=== PATIENT | female | born 1975 | race Caucasian/White ===

== ENCOUNTER 2022-05-30 10:15 | Emergency (ER) | payer OTHER, SELFPAY ==
[2022-05-30 10:20] VITALS: BP 161/101; PULSE 74; RESP 18; TEMP 36.1; O2SAT 95; BMI 28.7
--- NOTE | 2022-05-30 11:14 | CRLHL7_ITS ---
For Patients: As a result of the Century Cures Act, medical imaging exams and procedure reports are released immediately into your electronic medical record. You may view this report before your referring provider. If you have questions, please contact your health care provider. INDICATION: RUQ/rib pain COMPARISON: Ultrasound 01/18/2015. CT 01/20/2015. TECHNIQUE: Real time chavira scale imaging and color Doppler analysis was performed of the right upper quadrant. FINDINGS: The patient`s liver is of normal size and has uniform echogenicity. There is a normal appearance of the hepatic IVC and proximal abdominal aorta. There is no evidence of ascites. The gallbladder is of normal size and there is evidence of dirty distal acoustic shadowing associated with the fundal gallbladder wall. No large gallstones although tiny stones may be present. The gallbladder wall measures 3 mm in thickness. The common bile duct is of normal size and measures 5 mm in diameter at the level of the hali hepatis. The pancreas appears normal. There is no evidence of a stone or hydronephrosis within the right kidney. Extrarenal pelvis regarding the right kidney is similar to the prior CT. The right kidney measures 12.2 cm in length. IMPRESSION: Mild thickening of the gallbladder wall and dirty acoustic shadowing associated with the fundal wall suggesting adenomyomatosis. No biliary obstruction. A few tiny cholesterol stones may be present within the gallbladder lumen. Dictated by Fernando Daniels MD @ 05/30/2022 12:17:25 PM (Electronically Signed)
[2022-05-30] MEDS: KETOROLAC 30 MG/ML inj IVP (11:29)
[2022-05-30] MEDS: 0.9 % SODIUM CHLORIDE 1000 ml 1,000 ML IV (11:29)
[2022-05-30] MEDS: ONDANSETRON 2 MG/ML inj 4 MG IVP (11:29)
[2022-05-30 11:30] VITALS: BP 144/97; PULSE 97; RESP 18; O2SAT 95
[2022-05-30 12:00] VITALS: BP 150/99; PULSE 97; RESP 18; O2SAT 95
[2022-05-30 12:09] LABS: Basophils Absolute Auto 0.05 K/uL (0.00-0.30); Basophils Percent Auto 0.7 % (0.0-3.0); Eosinophils Percent Auto 12.5 % (0.0-7.0); Hematocrit 41.9 % (33.0-51.0); Hemoglobin* 13.9 gm/dL (12.0-16.0); Immature Granulocytes Abs Auto 0.01 K/uL (0.00-0.30); Lymphocytes Absolute Auto 1.99 K/uL (0.90-2.90); Lymphocytes Percent Auto 28.5 % (20-44); Mean Corpuscular HGB Conc 33 gm/dL (32-36); Mean Corpuscular Hemoglobin 31 pg (26-34); Mean Corpuscular Volume 94 fL (80-100); Monocytes Percent Auto 9.3 % (0.0-11.0); Neutrophils Absolute Auto 3.41 K/uL (1.7-7.0); Neutrophils Percent Auto 48.9 % (42.0-72.0); Platelet Count* 272 K/uL (140-440); RDW Coefficient of Variation % 11.9 % (11.5-15.5); Red Blood Count 4.45 m/uL (4.00-5.20); White Blood Count* 6.98 K/uL (4.50-11.00)
[2022-05-30 12:15] LABS: Slide Review Reflex No
[2022-05-30 12:18] LABS: Chloride* 106 mmol/L (96-114); Sodium* 138 mmol/L (135-149)
[2022-05-30 12:21] LABS: Creatinine* 0.7 mg/dL (0.5-1.5); Est. Creatinine Clearance* 108.59; Estimated Glomerular Filt Rate 108 ml/min
[2022-05-30 12:22] LABS: Blood Urea Nitrogen* 9 mg/dL (5-24); Calcium* 8.9 mg/dL (8.4-10.6); Carbon Dioxide* 27 mmol/L (20-32); Glucose* 98 mg/dL (60-115)
[2022-05-30 12:30] VITALS: BP 154/98; PULSE 97; RESP 18; TEMP 36.1; O2SAT 95
[2022-05-30 12:31] LABS: C Reactive Protein* < 0.5 mg/dL (0.5-1.0)
[2022-05-30 13:10] LABS: Albumin* 3.9 g/dL (3.3-5.0)
[2022-05-30 13:13] LABS: Alanine Aminotransferase* 14 U/L (4-35); Alkaline Phosphatase* 80 U/L (40-150); Aspartate Amino Transferase* 19 U/L (12-35); Bilirubin Direct* 0.1 mg/dL (0.0-0.5); Bilirubin Total* 0.2 mg/dL (0.1-1.5); Lipase* 31 U/L (23-300); Total Protein* 6.6 g/dL (6.0-8.3)
[2022-05-30 13:28] LABS: Troponin I* < 0.01 ng/mL (0.01-0.04)
--- NOTE | 2022-05-30 13:33 | CRLHL7_ITS ---
For Patients: As a result of the Century Cures Act, medical imaging exams and procedure reports are released immediately into your electronic medical record. You may view this report before your referring provider. If you have questions, please contact your health care provider. INDICATION: Upper abdominal pain. TECHNIQUE: CT abdomen and pelvis acquired with 98 mL Isovue 370 IV contrast. Coronal and sagittal reformats were generated. COMPARISON: CT of the abdomen and pelvis from 01/20/2015. FINDINGS: Lower chest: Unremarkable. Liver: Subcapsular hypodensity in segment 6 has increased in size from prior, but is well-circumscribed low-density and probably a cyst. No concerning hepatic lesions. Gallbladder and bile ducts: Thickening of the gallbladder fundus could be an adherent stone or adenomyomatosis. No wall thickening or pericholecystic fluid. Spleen: Unremarkable. Pancreas: Unremarkable. Adrenal glands: Unremarkable. No nodules. Kidneys and Ureters: Unremarkable. No suspicious masses, stones, or hydronephrosis. Lymph Nodes and Retroperitoneum: Unremarkable. Vasculature: Unremarkable. GI tract: Unremarkable. Normal in caliber. Surgically absent appendix. Peritoneum/Abdominal Wall: Unremarkable. No mass or infiltration. No free air or free fluid. Pelvic Viscera: Surgically absent. Bladder: Unremarkable. Bones: Unremarkable for age. IMPRESSION: No significant CT abnormality or findings to explain the cause of the patient`s symptoms. Please note that all CT scans at this facility use dose modulation, iterative reconstruction, and/or weight-based dosing when appropriate to reduce radiation dose to as low as reasonably achievable. Dictated by Viktor Cordova MD @ 05/30/2022 2:32:37 PM (Electronically Signed)
--- NOTE | 2022-05-30 13:59 | ED_ITS ---
HPI - Abdominal Pain General Date Seen: 05/30/22 Chief Complaint: Rib Pain Stated Complaint: pain in right ribs Time Seen by Provider: 05/30/22 10:23 Source: patient Mode of arrival: ambulatory Limitations: no limitations History of Present Illness HPI narrative: Patient is a very nice 47-year-old female who presents here with right-sided rib pain. She notes that she has had this on off for months, specific episodes that radiate up into her chest and also into her back region. She is unable to associated with eating or food her exercise removing. She has tried Tylenol ibuprofen with really no improvement. There is no history of fevers chills she does have a little nausea with this but has not vomited recently. Denies any shortness of breath or activities, it is more of a sharp pain then boring type of pain. Describes it as approximately 7 to 8/10. MD elicited complaint: abdominal pain Pertinent past history: none Onset (ago): week(s) Pain Consistency: intermittent Location: epigastric and RUQ Severity: moderate Quality: cramping and sharp Radiation: chest Migration to: no migration Exacerbating factors: nothing Relieving factors: nothing Associated symptoms: denies other symptoms and nausea Treatments prior to arrival: NSAIDs Related Data Patient : No Home Medications Medication Instructions Recorded Confirmed levothyroxine 100 mcg tablet 100 mcg PO DAILY 05/30/22 05/30/22 Allergies Allergy/AdvReac Type Severity Reaction Status Date / Time Sulfa (Sulfonamide Allergy Severe Verified 05/30/22 14:22 Antibiotics) Review of Systems Status of ROS Reports: 10 or more systems reviewed and unremarkable except as noted in History and below PFSH PFSH Social History Smoking Status: Never smoker Do you use any of these nicotine containing products: None Second hand tobacco smoke exposure: No How often do you have a drink containing alcohol: never How often do you have six or more drinks on one occasion: Never AUDIT-C Alcohol total score: 0 Non-prescribed substance use: denies use service: No Exam Narrative: Exam Narrative: Patient is seen and assessed, she is nontoxic but teary when she is telling me her story. Her pupils are equal round reactive to light there is no scleral icterus or redness TMs are normal oropharynx normal there is no adenopathy anterior posterior chains. Chest is good air entry bilateral with no wheezing crackles noted heart sounds no clicks murmurs or gallops, her pain is actually in her epigastric right upper quadrant she has tells me it is her ribs but really it is not it is in her abdomen. Her chest is nontender and where she is describing the pain is pretty well over right upper quadrant. Bowel sounds are normal, she is tender to pop palpation and she has a positive Sheikh sign. Lower quadrants are normal no organomegaly no CVA tenderness she moves all extremities independently and well. Skin reveals no petechiae or rashes Const: Vital Signs, click to edit/add: Vital Signs - 24 hr 05/30/22 10:20 Temperature 97.0 F L Pulse Rate [Left P ulse Oximeter] 74 Respiratory Rate 18 Blood Pressure [Le ft Upper Arm] 161/101 H Pulse Oximetry 95 Oxygen Delivery Me thod Room Air Documenting provider has reviewed patient's vital signs: yes Course Reevaluation(s) Reevaluation #1: Pain is slightly improved with both Toradol, and the morphine. I went over with the patient the results of her test, she was which showed normal hemoglobin, normal white count, normal basic metabolic profile, normal lipase, and normal liver test. Her ultrasound did show some shadowing consistent with small stones, slightly thickened gallbladder wall. No fluid. CT did not show any acute abnormalities which is very reassuring. I think her pain is coming from either eye GI, or gallbladder source, and recommend follow-up with General surgery for a discussion along with possible endoscopy and/or surgery. She was comfortable this she will follow the low-fat diet, start some Prilosec, use some Tylenol for discomfort and avoid something such as caffeinated beverages and alcohol. Vital Signs Vital signs: Initial Vital Signs Temperature 97.0 F L 05/30/22 10:20 Temperature Source Temporal Artery Scan 05/30/22 10:20 Pulse Rate 74 05/30/22 10:20 Pulse Rhythm 05/30/22 10:20 Pulse Strength 3+ Normal 05/30/22 10:20 Respiratory Rate 18 05/30/22 10:20 Blood Pressure 161/101 H 05/30/22 10:20 Blood Pressure Mean 121 05/30/22 10:20 Blood Pressure Position Supine 05/30/22 10:20 Pulse Oximetry 95 05/30/22 10:20 Oxygen Delivery Method 05/30/22 10:20 Vital Signs Temperature 97.0 F L 05/30/22 10:20 Pulse Rate 74 05/30/22 10:20 Respiratory Rate 18 05/30/22 10:20 Blood Pressure 161/101 H 05/30/22 10:20 Pulse Oximetry 95 05/30/22 10:20 Oxygen Delivery Method 05/30/22 10:20 Temperature 97.0 F L 05/30/22 10:20 Pulse Rate 74 05/30/22 10:20 Respiratory Rate 18 05/30/22 10:20 Blood Pressure 161/101 H 05/30/22 10:20 Pulse Oximetry 95 05/30/22 10:20 Oxygen Delivery Method 05/30/22 10:20 MDM - Abdominal Pain MDM Narrative Medical decision making narrative: During the evaluation of this patient I considered multiple differential diagnosis including life-threatening differentials which are appendicitis, aortic aneurysm, mesenteric ischemia, bowel perforation, ectopic , volvulus and bowel obstruction, other differential diagnosis include but are not limited to inflammatory bowel disease, cholecystitis, pancreatitis, hepatitis, gastritis, GERD, diverticulitis, peptic ulcer disease, pyelonephritis/UTI, renal colic/stone, pelvic inflammatory disease, cervicitis, endometritis, intrauterine , dysfunctional uterine bleeding, ovarian cyst/torsion, spontaneous as well as other etiologies Medical Records Attestation: I reviewed the patient's medical records. Lab Data Attestation: I reviewed the patient's lab results. Labs: Lab Results 05/30/22 05/30/22 05/30/22 Range/Units 01:35 11:33 11:33 WBC 6.98 (4.50-11.00) K/uL RBC 4.45 (4.00-5.20) m/uL Hgb 13.9 (12.0-16.0) gm/dL Hct 41.9 (33.0-51.0) % MCV 94 (80-100) fL MCH 31 (26-34) pg MCHC 33 (32-36) gm/dL RDW Coeff of Sanjay 11.9 (11.5-15.5) % Plt Count 272 (140-440) K/uL Neut % (Auto) 48.9 (42.0-72.0) % Lymph % (Auto) 28.5 (20-44) % Buchanan % (Auto) 9.3 (0.0-11.0) % Eos % (Auto) 12.5 H (0.0-7.0) % Baso % (Auto) 0.7 (0.0-3.0) % Neut # (Auto) 3.41 (1.7-7.0) K/uL Lymph # (Auto) 1.99 (0.90-2.90) K/uL Buchanan # (Auto) 0.60 (0.00-0.90) K/UL Eos # (Auto) 0.90 H (0.00-0.50) K/uL Baso # (Auto) 0.05 (0.00-0.30) K/uL Abs Immat Gran (auto) 0.01 (0.00-0.30) K/uL Sodium 138 (135-149) mmol/L Potassium 4.0 (3.6-5.1) mmol/L Chloride 106 (96-114) mmol/L Carbon Dioxide 27 (20-32) mmol/L BUN 9 (5-24) mg/dL Creatinine 0.7 (0.5-1.5) mg/dL Estimated Creat Clear 108.59 Estimated GFR 108 ml/min Glucose 98 (60-115) mg/dL Calcium 8.9 (8.4-10.6) mg/dL Total Bilirubin 0.2 (0.1-1.5) mg/dL Direct Bilirubin 0.1 (0.0-0.5) mg/dL AST 19 (12-35) U/L ALT 14 (4-35) U/L Alkaline Phosphatase 80 (40-150) U/L Troponin I < 0.01 L (0.01-0.04) ng/mL C-Reactive Protein < 0.5 L (0.5-1.0) mg/dL Total Protein 6.6 (6.0-8.3) g/dL Albumin 3.9 (3.3-5.0) g/dL Lipase 31 (23-300) U/L Imaging Data CT scan - abdomen: My impression: Nothing acute Radiologist's impression: Patient: MARIELOS SIDDIQI Facility:?[facility] Patient ID:?[id number] Site Patient ID:?[id number]. Site :?[id number] Study:?CT Abdomen/Pelvis W/ISOVUE 370 98CC-05/30/2022 2:09:48 PM Ordering Physician:Maria Ines Murrell Final Report: INDICATION: Upper abdominal pain. TECHNIQUE: CT abdomen and pelvis acquired with 98 mL Isovue 370 IV contrast. Coronal and sagittal reformats were generated. COMPARISON: CT of the abdomen and pelvis from 01/20/2015. FINDINGS: Lower chest: Unremarkable. Liver: Subcapsular hypodensity in segment 6 has increased in size from prior, but is well-circumscribed low-density and probably a cyst. No concerning hepatic lesions. Gallbladder and bile ducts: Thickening of the gallbladder fundus could be an adherent stone or adenomyomatosis. No wall thickening or pericholecystic fluid. Spleen: Unremarkable. Pancreas: Unremarkable. Adrenal glands: Unremarkable. No nodules. Kidneys and Ureters: Unremarkable. No suspicious masses, stones, or hydronephrosis. Lymph Nodes and Retroperitoneum: Unremarkable. Vasculature: Unremarkable. GI tract: Unremarkable. Normal in caliber. Surgically absent appendix. Peritoneum/Abdominal Wall: Unremarkable. No mass or infiltration. No free air or free fluid. Pelvic Viscera: Surgically absent. Bladder: Unremarkable. Bones: Unremarkable for age. IMPRESSION: No significant CT abnormality or findings to explain the cause of the patient`s symptoms. Please note that all CT scans at this facility use dose modulation, iterative reconstruction, and/or weight-based dosing when appropriate to reduce radiation dose to as low as reasonably achievable. Dictated by Viktor Cordova MD @ 05/30/2022 2:32:37 PM (Electronic Signature) Patient: MARIELOS SIDDIQI Facility:?[facility] Patient ID:?[id number] Site Patient ID:?[id number]. Site :?[id number] Study:?US Abdomen RUQ-05/30/2022 12:06:10 PM Ordering Physician:Maria Ines Murrell Final Report: INDICATION: RUQ/rib pain COMPARISON: Ultrasound 01/18/2015. CT 01/20/2015. TECHNIQUE: Real time chavira scale imaging and color Doppler analysis was performed of the right upper quadrant. FINDINGS: The patient`s liver is of normal size and has uniform echogenicity. There is a normal appearance of the hepatic IVC and proximal abdominal aorta. There is no evidence of ascites. The gallbladder is of normal size and there is evidence of dirty distal acoustic shadowing associated with the fundal gallbladder wall. No large gallstones although tiny stones may be present. The gallbladder wall measures 3 mm in thickness. The common bile duct is of normal size and measures 5 mm in diameter at the level of the hali hepatis. The pancreas appears normal. There is no evidence of a stone or hydronephrosis within the right kidney. Extrarenal pelvis regarding the right kidney is similar to the prior CT. The right kidney measures 12.2 cm in length. IMPRESSION: Mild thickening of the gallbladder wall and dirty acoustic shadowing associated with the fundal wall suggesting adenomyomatosis. No biliary obstruction. A few tiny cholesterol stones may be present within the gallbladder lumen. Dictated by Fernando Daniels MD @ 05/30/2022 12:17:25 PM (Electronic Signature) Discharge Plan Discharge Clinical Impression: Colicky epigastric pain Patient Disposition: Home w/ Parent or Adult Condition: Stable Instructions: GERD (Gastroesophageal Reflux Disease) (DC), Abdominal Pain (ED), Epigastric Pain (ED) Additional Instructions: Home, rest, low-fat diet, he may use some Tylenol for your discomfort, I would try to avoid the nonsteroidals, would also suggest follow up with General surgery for discussion, possibly an EGD, and possibly consideration of cholecystectomy. Note for work given, would also suggest avoidance of caffeine, alcohol. Start Prilosec 20 mg a day, you can buy this [id number]. Please take it for the next 3 weeks and see if it makes a huge difference. Return here if worsening fevers chills nausea vomiting chest discomfort or blood in her stools Prescriptions: No Action levothyroxine 100 mcg tablet 100 mcg PO DAILY Label Comments: TAKE 1 TABLET BY MOUTH EVERY DAY Follow Up/Referrals: Lisset Carson MD [Staff Physician] - Mario Clements MD [Staff Physician] - Jessica Galvez MD [Staff Physician] - Fernando Colbert MD [Primary Care Provider] - Stand Alone Forms: [facility] Info Instructions
[2022-05-30] MEDS: MORPHINE 2 MG/ML inj IVP (14:26)
[2022-05-30 14:30] VITALS: BP 172/102; PULSE 74; RESP 18; TEMP 36.1; O2SAT 95
== END 2022-05-30 15:13 | disposition home or self-care (01) ==
PROVIDERS: Emergency Provider Family Medicine; PCP Family Medicine
DX: R10.13 Epigastric pain (principal)
CPT/HCPCS: 36415; 74177; 76705; 80048; 80076; 81001; 83690; 84484; 85025; 86140; 87502; 87634; 87635; 96374; 96375; 99284; 99285; J1885; J2270; J2405; J7030; Q9967

== ENCOUNTER 2022-06-06 12:23 | Day surgery (SDC) | payer OTHER, SELFPAY ==
[2022-06-06] VITALS (13 sets, daily range): BP systolic 113–147; BP diastolic 59–90; PULSE 56–85; RESP 12–18; TEMP 36.3–37; O2SAT 93–100; BMI 31.3
[2022-06-06] MEDS: LACTATED RINGERS 1000 ML 1,000 ML 100 ML IV (12:52)
[2022-06-06] MEDS: SODIUM CHLORIDE 0.9 % (FLUSH) 10 ML SYRINGE IVF (12:52)
[2022-06-06] MEDS: BUPIVACAINE 0.25% 30 ML 20 ML INJECTION (14:16)
--- NOTE | 2022-06-06 14:32 | SUR.OPER ---
PATIENT QUESTIONS ANSWERED SATISFACTORILY PREOPERATIVELY.? PATIENT BROUGHT TO OR #2 PER CART.? Patient positioned supine on OR #2 bed.?The perioperative?team supported arms bilaterally on arm boards.? Final approval of positioning by surgeon.?
--- NOTE | 2022-06-06 15:10 | W.ANESCHARGE ---
Anesthesia Charges Start Date/Time Anesthesia Start Date: 06/06/22 Anesthesia Start Time: 13:59 Stop Date/Time Anesthesia Stop Date: 06/06/22 Anesthesia Stop Time: 15:10 Summary Emergency: No
--- NOTE | 2022-06-06 15:12 | P.GSOP_ITS ---
Operative Note Date of procedure: 06/06/22 Type of Procedure: Laparoscopic cholecystectomy Procedure Description: After discussing the risks and benefits of the procedure, the patient signed informed consent.? The operative site was marked and the patient was brought to the operating room and placed on the operating table in supine position.? Care was taken to pad the patient's pressure points.?? The patient was then intubated by anesthesia.?? The operative site was then prepped and draped in the usual sterile fashion.? A time-out was then performed. Entrance to the abdomen was gained via a 5 mm Visiport in the left upper quadrant. The abdomen was insufflated and briefly surveyed for signs of injury. There was none. A 10 mm umbilical port was placed as well as 2 working ports along the right costal margin, all under direct vision. The patient was then p laced in reverse Trendelenburg position with the right side up. The gallbladder fundus was grasped and retracted cephalad. The infundibulum was grasped. The gallbladder was not inflamed but it was somewhat distended and tense. A combination of hook cautery and blunt dissection was used to carefully dissect out the cystic duct and artery until they could clearly be seen entering the gallbladder without any intervening structures. The gallbladder was dissected off the cystic plate to achieve the critical view. There were 2 small branches of the cystic artery which were clipped with 2 clips proximal 1 clip distal before dividing. The cystic duct was just slightly too large for 5 mm clip and therefore I elected to ligate it with Endoloops. The gallbladder was transected at the junction of the gallbladder neck and cystic duct and a PDS and a Vicryl endoloop for each placed around the cystic duct stump. The gallbladder was then taken off of the liver bed and removed from the abdomen using an Endo-Catch bag. The gallbladder bed was surveyed for hemostasis which appeared adequate. A small amount of bile which had spilled was suctioned from the abdomen. The remaining ports were then removed and the abdomen desufflated. The umbilical port fascia was closed with 0 Vicryl. The skin was closed with absorbable subcuticular suture. Sterile dressings were then applied. Instrument, sponge and needle counts were correct at the end the case. ? The patient was then woken and transported to the recovery area in stable condition. ? The patient tolerated the procedure well. Findings: Distended gallbladder. Anesthesia: GETA Surgeon: Jessica Galvez MD Estimated blood loss (mL): 5 Condition: stable Disposition: PACU
--- NOTE | 2022-06-06 15:23 | W.ANESCHARGE ---
Anesthesia Charges Start Date/Time Anesthesia Start Date: 06/06/22 Anesthesia Start Time: 13:59 Stop Date/Time Anesthesia Stop Date: 06/06/22 Anesthesia Stop Time: 15:10 Summary Emergency: No
[2022-06-06] MEDS: METOCLOPRAMIDE HCL 5 MG/ML INJ 10 MG IVP (15:55)
[2022-06-06] MEDS: OXYCODONE 5 MG TABLET PO (16:24)
--- NOTE | 2022-06-06 16:55 | SUR.PHASEII ---
DR BOWLES IN TO SEE PT , UP VOIDED PT DISCHARGED IN STABLE CONDTION.
== END 2022-06-06 17:00 | disposition home or self-care (01) ==
PROVIDERS: PCP Family Medicine; Visit Provider Surgery
PROC: 0FT44ZZ Resection of Gallbladder, Percutaneous Endoscopic Approach (ICD-10-PCS; CPT 47562; principal; 2022-06-06 14:00)
DX: K81.1 Chronic cholecystitis (principal)
CPT/HCPCS: 47562; 00790; 88304; A9270; J0330; J1170; J1885; J2250; J2704; J2710; J2765; J3010; J3490; J7120

== ENCOUNTER 2022-06-19 13:27 | Outpatient (CLI) | payer OTHER, SELFPAY ==
[2022-06-19 14:59] LABS: Albumin* 4.2 g/dL (3.3-5.0)
[2022-06-19 15:02] LABS: Alanine Aminotransferase* 22 U/L (4-35); Alkaline Phosphatase* 80 U/L (40-150); Aspartate Amino Transferase* 23 U/L (12-35); Bilirubin Direct* 0.2 mg/dL (0.0-0.5); Bilirubin Total* 0.2 mg/dL (0.1-1.5)
== END 2022-06-19 13:28 | disposition home or self-care (01) ==
LOC: NFLDREF 13:28
PROVIDERS: PCP Family Medicine; Visit Provider Surgery
DX: R10.11 Right upper quadrant pain (principal)
CPT/HCPCS: 80076

== ENCOUNTER 2022-08-31 14:20 | Outpatient (CLI) | payer BC, SELFPAY ==
[2022-09-02 15:12] LABS: Thyroid Peroxidase (TPO) Ab 458.1 IU/mL (0.0-9.0)
== END 2022-08-31 14:21 | disposition home or self-care (01) ==
PROVIDERS: PCP Family Medicine; Visit Provider Family Medicine
DX: R53.83 Other fatigue (principal); E03.9 Hypothyroidism, unspecified; F32.9 Major depressive disorder, single episode, unspecified; F41.9 Anxiety disorder, unspecified
CPT/HCPCS: 84443; 86376

== ENCOUNTER 2022-11-14 10:37 | Emergency (ER) | payer BC, SELFPAY ==
[2022-11-14 10:57] VITALS: BP 130/93; PULSE 83; RESP 18; TEMP 36.8; O2SAT 97; BMI 30.4
--- NOTE | 2022-11-14 11:14 | CRLHL7_ITS ---
For Patients: As a result of the Century Cures Act, medical imaging exams and procedure reports are released immediately into your electronic medical record. You may view this report before your referring provider. If you have questions, please contact your health care provider. INDICATION: Right upper quadrant abdomen pain. History of cholecystectomy. TECHNIQUE: Ultrasound abdomen limited. Sonographic images of the right upper quadrant were obtained using chavira-scale and color Doppler images. COMPARISON: None. FINDINGS: Liver: Normal in size. Increased echogenicity.. No suspicious masses. No intrahepatic biliary dilatation. Gallbladder: Surgically absent. Multiple clips in the gallbladder fossa mildly limiting evaluation. Possible small fluid within the gallbladder fossa is noted.. Common bile duct: Not visualized Pancreas: Partially obscured by bowel gas. Visualized portions are unremarkable. Right kidney: Normal in size. Normal echotexture and cortex. No suspicious masses, stones, or hydronephrosis. Vasculature: Proximal abdominal aorta and IVC are unremarkable. IMPRESSION: Status post cholecystectomy. Possible trace fluid in the gallbladder fossa. No intrahepatic biliary ductal dilatation identified. Common bile duct is not visualized. Hepatic steatosis. Dictated by Brigida Miles MD @ 11/14/2022 1:03:15 PM (Electronically Signed)
--- NOTE | 2022-11-14 14:54 | ED_ITS ---
HPI - General Adult General Date Seen: 11/14/22 Chief complaint: Abdominal Pain Stated complaint: Abdominal/post-op gallbladder removal pain Time Seen by Provider: 11/14/22 14:28 Source: patient Mode of arrival: ambulatory Limitations: no limitations History of Present Illness HPI narrative: Patient is a 47-year-old woman status post cholecystectomy last May 30 presents for evaluation of right-sided abdominal pain. She says that on Sunday, 2 days ago she developed vomiting and diarrhea. Those symptoms continued until yesterday. Since then, the vomiting and diarrhea have resolved but she has developed pain in the far right lateral abdomen. She saw her doctor yesterday and an outpatient ultrasound was ordered, but she came to the ER today because of ongoing pain. She has been able to start eating again, she says she had some tenderloin and mashed potatoes last night and was able he that down. She has been able to drink fluids okay. Related Data Home Medications Medication Instructions Recorded Confirmed acetaminophen 500 mg tablet 1,000 mg PO Q6H PRN 08/01/22 11/13/22 (Tylenol Extra Strength) Previous Rx's Medication Instructions Recorded levothyroxine 100 mcg tablet 100 mcg PO DAILY #30 tabs 08/18/22 ondansetron HCl 8 mg tablet 8 mg PO Q8-12H PRN nausea and 11/13/22 vomiting 4 days #12 tabs Allergies Allergy/AdvReac Type Severity Reaction Status Date / Time Sulfa (Sulfonamide Allergy Severe Verified 11/13/22 11:10 Antibiotics) [facility] Medical History (Updated 11/14/22 @ 16:02 by Mirela Pinedo MD) Anxiety (06/09/10) Concussion (09/2016) Diarrhea Hypothyroidism Major depressive disorder (06/09/10) Postconcussion syndrome depression (03/25/12) Surgical History (Updated 08/31/22 @ 14:23 by Sepideh Cool DO) History of appendectomy (06/09/10) History of dilation and curettage (06/09/10) History of nasal septoplasty (08/05/21) History of total abdominal hysterectomy (10/06/14) S/P laparoscopic cholecystectomy Status post left breast lumpectomy (06/02/08) Family History (Updated 06/05/22 @ 14:40 by Jessica Galvez MD) Maternal Grandfather Hyperlipidemia High blood pressure Skin cancer Social History (Updated 06/02/22 @ 09:29 by Razia Sibley) Narrative: Does not drink alcohol Does not use illicit drugs Smoker- 1-2 cigarettes per day Smoking Status: Former smoker Do you use any of these nicotine containing products: None Second hand tobacco smoke exposure: No How often do you have a drink containing alcohol: never How often do you have six or more drinks on one occasion: Never AUDIT-C Alcohol total score: 0 Non-prescribed substance use: denies use Caffeine: No Little interest or pleasure in doing things: not at all Feeling down, depressed, or hopeless: not at all service: No Exam Const: Vital Signs, click to edit/add: Vital Signs - 24 hr 11/14/22 10:57 Temperature 98.3 F Pulse Rate [Right Pulse Oximeter] 83 Respiratory Rate 18 Blood Pressure [Ri ght Upper Arm] 130/93 H Pulse Oximetry 97 Oxygen Delivery Me thod Room Air Course Course Hospital Course: Patient was actually in triage for quite a while and so I ordered an ultrasound while she was in triage. This is read by Radiology as follows:: Liver: Normal in size. Increased echogenicity.. No suspicious masses. No intrahepatic biliary dilatation. Gallbladder: Surgically absent. Multiple clips in the gallbladder fossa mildly limiting evaluation. Possible small fluid within the gallbladder fossa is noted.. Common bile duct: Not visualized Pancreas: Partially obscured by bowel gas. Visualized portions are unremarkable. Right kidney: Normal in size. Normal echotexture and cortex. No suspicious masses, stones, or hydronephrosis. Vasculature: Proximal abdominal aorta and IVC are unremarkable. IMPRESSION: Status post cholecystectomy. Possible trace fluid in the gallbladder fossa. No intrahepatic biliary ductal dilatation identified. Common bile duct is not visualized. Hepatic steatosis. I discussed this with her. I do not think there is anything acute going on here. Given that the common bile duct is not visualized, I think we can infer that it is not dilated. We had initially discussed doing labs and fluids. When the nurse went in to start the IV, she said that she did not want an IV or any labs done because labs have been done at her primary doctor's. I went back in to talk with her, and at that time she amended her history little bit. Apparently she has had this right sided pain for quite some time, it actually predated her cholecystectomy, and she is frustrated that is has persisted after her cholecystectomy. She says since the episode of vomiting and diarrhea that pain is worse. She does not know what to do about that pain because she has seen her primary doctor and nobody seems to know what is causing it. She tells me that she did not have labs done yesterday at her primary care clinic, because her doctor had just on them recently and they were normal. However, she says she does not think that labs will be helpful because this pain has been there for so long. I am inclined to agree with her that if the pain has been chronic and persistent that is is unlikely to be due to choledocholithiasis, pancreatitis, hepatitis, diverticulitis, colitis, bowel obstruction, or other acute process. She is status post appendectomy and hysterectomy. She does feel that she is dehydrated and would like to have some IV fluids. That is the plan at this time, is for rehydration. Explained that we probably will not have a good explanation for her chronic right-sided pain, and I would refer back to primary care for further discussion on management of that. Vital Signs Vital signs: Initial Vital Signs Temperature 98.3 F 11/14/22 10:57 Temperature Source Temporal Artery Scan 11/14/22 10:57 Pulse Rate 83 11/14/22 10:57 Respiratory Rate 18 11/14/22 10:57 Blood Pressure 130/93 H 11/14/22 10:57 Blood Pressure Mean 105 11/14/22 10:57 Blood Pressure Position Sitting 11/14/22 10:57 Pulse Oximetry 97 11/14/22 10:57 Oxygen Delivery Method 11/14/22 10:57 Vital Signs Temperature 98.3 F 11/14/22 10:57 Pulse Rate 83 11/14/22 10:57 Respiratory Rate 18 11/14/22 10:57 Blood Pressure 130/93 H 11/14/22 10:57 Pulse Oximetry 97 11/14/22 10:57 Oxygen Delivery Method 11/14/22 10:57 Temperature 98.3 F 11/14/22 10:57 Pulse Rate 83 11/14/22 10:57 Respiratory Rate 18 11/14/22 10:57 Blood Pressure 130/93 H 11/14/22 10:57 Pulse Oximetry 97 11/14/22 10:57 Oxygen Delivery Method 11/14/22 10:57 Discharge Plan Discharge Clinical Impression: Gastroenteritis, Chronic RUQ pain Patient Disposition: Home, Self-Care Condition: Improved Instructions: Chronic Abdominal Pain (ED) Additional Instructions: Continue to work on hydration as needed at home. If you have further vomiting, new symptoms such as fever, severe abdominal pain or other new symptoms, return for re-evaluation. Otherwise, would discuss your ongoing right upper quadrant pain with primary care. Prescriptions: No Action ondansetron HCl 8 mg tablet 8 mg PO Q8-12H PRN (Reason: nausea and vomiting) 4 Days Qty: 12 0RF acetaminophen [Tylenol Extra Strength] 500 mg tablet 1,000 mg PO Q6H PRN levothyroxine 100 mcg tablet 100 mcg PO DAILY Qty: 30 0RF Label Comments: TAKE 1 TABLET BY MOUTH EVERY DAY Follow Up/Referrals: Fernando Colbert MD [Primary Care Provider] - Stand Alone Forms: [employer] Info Instructions
[2022-11-14] MEDS: KETOROLAC 15 MG/ML inj IVP (15:18)
[2022-11-14] MEDS: 0.9 % SODIUM CHLORIDE 1000 ml 1,000 ML IV (15:18)
[2022-11-14] MEDS: ONDANSETRON 2 MG/ML inj 4 MG IVP (15:18)
== END 2022-11-14 16:12 | disposition home or self-care (01) ==
PROVIDERS: Emergency Provider Emergency Medicine; PCP Family Medicine
DX: K52.9 Noninfective gastroenteritis and colitis, unspecified (principal); R10.11 Right upper quadrant pain
CPT/HCPCS: 76705; 80048; 80076; 81001; 83605; 83690; 85025; 86140; 96374; 96375; 99284; J1885; J2405; J7030

== ENCOUNTER 2023-07-16 13:57 | Emergency (ER) | payer BC, SELFPAY ==
[2023-07-16 14:05] VITALS: BP 135/84; PULSE 72; RESP 16; TEMP 37.1; O2SAT 100; BMI 30.7
--- NOTE | 2023-07-16 15:16 | CRLHL7_ITS ---
For Patients: As a result of the Century Cures Act, medical imaging exams and procedure reports are released immediately into your electronic medical record. You may view this report before your referring provider. If you have questions, please contact your health care provider. INDICATION: Abdominal pain. Cramping. TECHNIQUE: CT abdomen and pelvis acquired with 105 mL Isovue 370 IV contrast. COMPARISON: 05/30/2022 FINDINGS: Lower chest: Normal heart size. No pericardial effusion. Lung bases are clear. Liver: Normal size. Subcentimeter low-density lesion is too small to accurately characterize. This is stable and therefore likely benign. Spleen: Normal size. Pancreas: No acute inflammatory changes. Gallbladder and bile ducts: Cholecystectomy. No significant bile duct dilatation. Kidneys: Normal size and enhancement. No hydronephrosis. Adrenal glands: No mass. GI tract: No abnormally dilated bowel to suggest obstruction. Appendix is surgically absent. There is a small to moderate amount of stool primarily in the right side of the colon and transverse colon. Vascular structures: Normal caliber abdominal aorta. Lymph nodes: No pathologically enlarged lymph nodes. Miscellaneous: No free air. No free fluid. Pelvic Organs: No urinary bladder wall thickening or mass. Hysterectomy. No suspicious adnexal mass. Bones: No acute abnormality. IMPRESSION: 1. No CT evidence of an acute infectious or inflammatory process in the abdomen or pelvis. No evidence of bowel obstruction. 2. Small to moderate amount of stool within the colon. 3. Other findings as noted. Please note that all CT scans at this facility use dose modulation, iterative reconstruction, and/or weight-based dosing when appropriate to reduce radiation dose to as low as reasonably achievable. Dictated by Bc Woodall MD @ 07/16/2023 6:42:50 PM (Electronically Signed)
--- NOTE | 2023-07-16 15:27 | ED.ABDPAIN ---
HPI - Abdominal Pain General Date Seen: 07/16/23 <Handy Julien MD - Last Filed: 07/17/23 09:48> Chief Complaint: Constipation <Handy Julien MD - Last Filed: 07/17/23 09:48> Stated Complaint: Abdominal pain <Handy Julien MD - Last Filed: 07/17/23 09:48> Time Seen by Provider: 07/16/23 14:56 <Handy Julien MD - Last Filed: 07/17/23 09:48> Source: patient and family <Handy Julien MD - Last Filed: 07/17/23 09:48> Mode of arrival: ambulatory <Handy Julien MD - Last Filed: 07/17/23 09:48> Limitations: no limitations <Handy Juline MD - Last Filed: 07/17/23 09:48> History of Present Illness HPI narrative: Patient is a very nice 48-year-old female who has been battling lower abdominal pain now for the last 7-10 days, she primarily says it is in her left lower quadrant, his is associated with some constipation she has been really unable have a bowel movement despite taking MiraLax every day for the last 5 days, and doing occasional enemas. She has noted some blood, both dry and some dark red issues with blood in her stools. When she has been able to have some stools. She thinks she may have a hemorrhoid. No vomiting, but felt that time she may. She has been eating less for the last week, does not endorse any fevers chills or sweats associated with this is no dysuria frequency noted. She has had problems of abdominal pain for quite a while. Usually however it is in her right upper quadrant. She called her physician today or told her to come to the emergency room for further assessment. She was scheduled for a colonoscopy in the past, but canceled this. Takes Tylenol and ibuprofen for the discomfort. Finds it is not very helpful. History of previous cholecystectomy done for possible abdominal pain. Did not really see a help with this surgery. She has had a previous partial hysterectomy. <Handy Julien MD - Last Filed: 07/17/23 09:48> MD elicited complaint: abdominal pain <Handy Julien MD - Last Filed: 07/17/23 09:48> Pertinent past history: constipation <Handy Julien MD - Last Filed: 07/17/23 09:48> Onset (ago): week(s) <Handy Julien MD - Last Filed: 07/17/23 09:48> Pain Consistency: constant <Handy Julien MD - Last Filed: 07/17/23 09:48> Location: RLQ and LLQ <Handy Julien MD - Last Filed: 07/17/23 09:48> Severity: moderate <Handy Julien MD - Last Filed: 07/17/23 09:48> Quality: cramping and fullness <Handy Julien MD - Last Filed: 07/17/23 09:48> Radiation: none <Handy Julien MD - Last Filed: 07/17/23 09:48> Migration to: no migration <Handy Julien MD - Last Filed: 07/17/23 09:48> Exacerbating factors: bowel movement and movement <Handy Julien MD - Last Filed: 07/17/23 09:48> Related Data Patient : No <Handy Julien MD - Last Filed: 07/17/23 09:48> Home Medications: Home Medications Medication Instructions Recorded Confirmed acetaminophen 500 mg tablet 1,000 mg PO Q6H PRN 08/01/22 04/09/23 (Tylenol Extra Strength) levothyroxine 100 mcg tablet 112 mcg PO DAILY 03/19/23 07/16/23 topiramate 100 mg tablet 100 mg PO DAILY 07/16/23 07/16/23 Previous Rx's Medication Instructions Recorded ibuprofen 600 mg tablet 600 mg PO Q8H PRN pain #21 tabs 11/15/22 cefdinir 300 mg capsule 300 mg PO BID #20 caps 07/16/23 <Handy Julien MD - Last Filed: 07/17/23 09:48> Allergies/Adverse Reactions: Allergies Allergy/AdvReac Type Severity Reaction Status Date / Time Sulfa (Sulfonamide Allergy Severe Verified 07/16/23 14:04 Antibiotics) <Handy Julien MD - Last Filed: 07/17/23 09:48> Review of Systems Status of ROS Reports: 10 or more systems reviewed and unremarkable except as noted in History and below <Handy Julien MD - Last Filed: 07/17/23 09:48> [facility] Medical History: Medical History depression (03/25/12) ?F53.0 - depression (ICD-10) Postconcussion syndrome ?F07.81 - Postconcussional syndrome (ICD-10) Major depressive disorder (06/09/10) ?F32.9 - Major depressive disorder, single episode, unspecified (ICD-10) Hypothyroidism ?E03.9 - Hypothyroidism, unspecified (ICD-10) Diarrhea ?R19.7 - Diarrhea, unspecified (ICD-10) Concussion (09/2016) ?S06.0X9A - Concussion with loss of consciousness of unspecified duration, initial encounter (ICD-10) Anxiety (06/09/10) ?F41.9 - Anxiety disorder, unspecified (ICD-10) <Handy Julien MD - Last Filed: 07/17/23 09:48> Surgical History: Surgical History S/P laparoscopic cholecystectomy ?Z90.49 - Acquired absence of other specified parts of digestive tract (ICD-10) History of nasal septoplasty (08/05/21) ?Z98.890 - Other specified postprocedural states (ICD-10) Status post left breast lumpectomy (06/02/08) ?Z98.890 - Other specified postprocedural states (ICD-10) History of total abdominal hysterectomy (10/06/14) ?Z90.710 - Acquired absence of both cervix and uterus (ICD-10) History of dilation and curettage (06/09/10) ?Z98.890 - Other specified postprocedural states (ICD-10) History of appendectomy (06/09/10) ?Z90.49 - Acquired absence of other specified parts of digestive tract (ICD-10) <Handy Julien MD - Last Filed: 07/17/23 09:48> Family History: Family History Maternal Grandfather Hyperlipidemia High blood pressure Skin cancer <Handy Julien MD - Last Filed: 07/17/23 09:48> Social History: Social History (Updated 07/16/23 @ 18:58 by Shana Blackwell MD) Narrative: Does not drink alcohol Does not use illicit drugs Smoker- 1-2 cigarettes per day Smoking Status: Former smoker What tobacco products do you use: cigarettes Smoking packs per day: 0.25 Smoking cigarettes per day: 5.0 Smoking quit date/years: <= 15 years ago Do you use any of these nicotine containing products: None Second hand tobacco smoke exposure: No How often do you have a drink containing alcohol: never AUDIT-C Alcohol total score: 0 Non-prescribed substance use: denies use Caffeine: No Little interest or pleasure in doing things: not at all Feeling down, depressed, or hopeless: not at all service: No <Handy Julien MD - Last Filed: 07/17/23 09:48> Exam Narrative: Exam Narrative: Patient is seen and stabilization room 2, she is in no apparent distress. Little bit teary at times her pupils equal round reactive to light there is no scleral icterus or redness conjunctiva well perfused, TMs normal oropharynx normal, neck is supple, chest is clear bilaterally no wheezing crackles noted her heart sounds are normal, her abdominal exam shows an obese abdomen, with tenderness in the left lower and right lower quadrant cared across the suprapubic region. No upper lower tenderness is noted. There is no peritoneal signs no organomegaly, no redness rashes noted. No CVA tenderness. She moves all extremities independently well with normal motor function, normal strength. With nurse Christian present, rectal exam is done, this showed no blood or dark in on my finger. She had 1 external hemorrhoid noted. That was non thrombosed. And some skin tags. There is some left-sided facial tenderness over maxilla probably consistent with a little bit of sinusitis. <Handy Julien MD - Last Filed: 07/17/23 09:48> Const: Vital Signs, click to edit/add: Vital Signs - 24 hr 07/16/23 14:05 07/16/23 17:00 07/16/23 19:00 Temperature 98.8 F Pulse Rate [Pulse Oximeter] 72 80 73 Respiratory Rate 16 16 16 Blood Pressure [Ri ght Upper Arm] 135/84 142/92 H 134/93 H Pulse Oximetry 100 96 95 Oxygen Delivery Me thod Room Air Room Air Room Air <Handy Julien MD - Last Filed: 07/17/23 09:48> Vital Signs, click to edit/add: Vital Signs - 24 hr 07/16/23 14:05 07/16/23 17:00 07/16/23 19:00 Temperature 98.8 F Pulse Rate [Pulse Oximeter] 72 80 73 Respiratory Rate 16 16 16 Blood Pressure [Ri ght Upper Arm] 135/84 142/92 H 134/93 H Pulse Oximetry 100 96 95 Oxygen Delivery Me thod Room Air Room Air Room Air <Shana Blackwell MD - Last Filed: 07/16/23 18:58> Documenting provider has reviewed patient's vital signs: yes <Handy Julien MD - Last Filed: 07/17/23 09:48> Course Reevaluation(s) Time of Reevaluation #1: 16:01 <Handy Julien MD - Last Filed: 07/17/23 09:48> Reevaluation #1: Signed out to my partner <Handy Julien MD - Last Filed: 07/17/23 09:48> Time of Reevaluation #2: 18:51 <Shana Blackwell MD - Last Filed: 07/16/23 18:58> Reevaluation #2: CT report is finally in, was delay in reading due to volumes that the radiologist needed to get through. Reviewed with her that her CT showing no acute intra-abdominal abnormality. There is [id number] stool commented on. She was wondering about her procalcitonin as it flagged in the labs. I reviewed with her that it is technically normal and actually very low which would indicate no antibiotics are needed. She and Dr. Julien had talked about the left sinus infection she had in she is expecting antibiotics. She cannot take amoxicillin, no Z-Evens and sulfa is listed as an allergy. She believes she can take cephalosporins fine. I will send in an antibiotic based on her discussion with Dr. Julien. We discussed constipation, discussed constipation can be associated with IBS. She has done enemas and got some blood with that, would recommend she avoid these at this point. She has done MiraLax daily for about 6 days. We discussed the MiraLax prep for colonoscopy; otherwise I would recommend doing MiraLax twice daily, adding in senna until she is starting to have bowel movements and then backing off the dosing of these medications. She is going to get a colonoscopy scheduled with her primary provider. <Shana Blackwell MD - Last Filed: 07/16/23 18:58> Vital Signs Vital signs: Initial Vital Signs Temperature 98.8 F 07/16/23 14:05 Temperature Source Temporal Artery Scan 07/16/23 14:05 Pulse Rate 72 07/16/23 14:05 Pulse Rhythm Regular 07/16/23 14:05 Pulse Strength 3+ Normal 07/16/23 14:05 Respiratory Rate 16 07/16/23 14:05 Blood Pressure 135/84 07/16/23 14:05 Blood Pressure Mean 101 07/16/23 14:05 Blood Pressure Position Sitting 07/16/23 14:05 Pulse Oximetry 100 07/16/23 14:05 Oxygen Delivery Method Room Air 07/16/23 14:05 Vital Signs Temperature 98.8 F 07/16/23 14:05 Pulse Rate 72 07/16/23 14:05 Respiratory Rate 16 07/16/23 14:05 Blood Pressure 135/84 07/16/23 14:05 Pulse Oximetry 100 07/16/23 14:05 Oxygen Delivery Method Room Air 07/16/23 14:05 Temperature 98.8 F 07/16/23 14:05 Pulse Rate 73 07/16/23 19:00 Respiratory Rate 16 07/16/23 19:00 Blood Pressure 134/93 H 07/16/23 19:00 Pulse Oximetry 95 07/16/23 19:00 Oxygen Delivery Method Room Air 07/16/23 19:00 <Handy Julien MD - Last Filed: 07/17/23 09:48> Initial Vital Signs Temperature 98.8 F 07/16/23 14:05 Temperature Source Temporal Artery Scan 07/16/23 14:05 Pulse Rate 72 07/16/23 14:05 Pulse Rhythm Regular 07/16/23 14:05 Pulse Strength 3+ Normal 07/16/23 14:05 Respiratory Rate 16 07/16/23 14:05 Blood Pressure 135/84 07/16/23 14:05 Blood Pressure Mean 101 07/16/23 14:05 Blood Pressure Position Sitting 07/16/23 14:05 Pulse Oximetry 100 07/16/23 14:05 Oxygen Delivery Method Room Air 07/16/23 14:05 Vital Signs Temperature 98.8 F 07/16/23 14:05 Pulse Rate 72 07/16/23 14:05 Respiratory Rate 16 07/16/23 14:05 Blood Pressure 135/84 07/16/23 14:05 Pulse Oximetry 100 07/16/23 14:05 Oxygen Delivery Method Room Air 07/16/23 14:05 Temperature 98.8 F 07/16/23 14:05 Pulse Rate 73 07/16/23 19:00 Respiratory Rate 16 07/16/23 19:00 Blood Pressure 134/93 H 07/16/23 19:00 Pulse Oximetry 95 07/16/23 19:00 Oxygen Delivery Method Room Air 07/16/23 19:00 <Shana Blackwell MD - Last Filed: 07/16/23 18:58> MDM - Abdominal Pain MDM Narrative Medical decision making narrative: During the evaluation of this patient I considered multiple differential diagnosis including life-threatening differentials which are appendicitis, aortic aneurysm, mesenteric ischemia, bowel perforation, ectopic , volvulus and bowel obstruction, other differential diagnosis include but are not limited to inflammatory bowel disease, cholecystitis, pancreatitis, hepatitis, gastritis, GERD, diverticulitis, peptic ulcer disease, pyelonephritis/UTI, renal colic/stone, pelvic inflammatory disease, cervicitis, endometritis, intrauterine , dysfunctional uterine bleeding, ovarian cyst/torsion, spontaneous as well as other etiologies <Handy Julien MD - Last Filed: 07/17/23 09:48> Medical Records Attestation: I reviewed the patient's medical records. <Handy Julien MD - Last Filed: 07/17/23 09:48> Lab Data Attestation: I reviewed the patient's lab results. <Shana Blackwell MD - Last Filed: 07/16/23 18:58> Labs: Lab Results 07/16/23 07/16/23 07/16/23 Range/Units 13:35 15:14 15:35 WBC 8.59 (4.50-11.00) K/uL RBC 4.38 (4.00-5.20) m/uL Hgb 13.8 (12.0-16.0) gm/dL Hct 40.9 (33.0-51.0) % MCV 93 (80-100) fL MCH 32 (26-34) pg MCHC 34 (32-36) gm/dL RDW Coeff of Sanjay 12.1 (11.5-15.5) % Plt Count 298 (140-440) K/uL Neut % (Auto) 50.3 (42.0-72.0) % Lymph % (Auto) 31.1 (20-44) % [place] % (Auto) 9.5 (0.0-11.0) % Eos % (Auto) 8.3 H (0.0-7.0) % Baso % (Auto) 0.7 (0.0-3.0) % Neut # (Auto) 4.32 (1.7-7.0) K/uL Lymph # (Auto) 2.67 (0.90-2.90) K/uL [place] # (Auto) 0.80 (0.00-0.90) K/UL Eos # (Auto) 0.70 H (0.00-0.50) K/uL Baso # (Auto) 0.06 (0.00-0.30) K/uL Abs Immat Gran (auto) 0.01 (0.00-0.30) K/uL Imm/Tot Granulo (auto) 0.1 % D-Dimer Quant (PE/DVT) 0.34 (0.00-0.50) ug/ml Sodium 138 (135-149) mmol/L Potassium 3.6 (3.6-5.1) mmol/L Chloride 108 (96-114) mmol/L Carbon Dioxide 22 (20-32) mmol/L Anion Gap 8 (7-15) mEq/L BUN 12 (5-24) mg/dL Creatinine 0.9 (0.5-1.5) mg/dL Estimated Creat Clear 83.56 Estimated GFR 79 ml/min Glucose 92 (60-115) mg/dL Lactate 0.7 (0.5-1.9) mmol/L Calcium 9.6 (8.4-10.6) mg/dL Total Bilirubin 0.3 (0.1-1.5) mg/dL Direct Bilirubin 0.1 (0.0-0.5) mg/dL AST 22 (12-35) U/L ALT 22 (4-35) U/L Alkaline Phosphatase 81 (40-150) U/L C-Reactive Protein 1.3 H (0.5-1.0) mg/dL Total Protein 7.2 (6.0-8.3) g/dL Albumin 4.2 (3.3-5.0) g/dL Amylase 42 (18-89) U/L Lipase 61 (23-300) U/L Procalcitonin 0.04 (<0.50) ng/mL Urine Color Yellow (Yellow) Urine Appearance Clear (Clear) Urine pH 6.0 (5.0-8.5) Ur Specific [place] 1.010 (1.000-1.030) Urine Protein Negative (Negative) Urine Glucose (UA) Negative (Negative) Urine Ketones Negative (Negative) Urine Blood Negative (Negative) Urine Nitrite Negative (Negative) Urine Bilirubin Negative (Negative) Urine Urobilinogen 0.2 (0.2-1.0) Ur Leukocyte Esterase Negative (Negative) Urine RBC 0-2 (0-2) Urine WBC 0-2 (0-5) Ur Squamous Epith Cells None (None-Few) Urine Bacteria None (None) Stool Occult Blood Negative (Negative) Ethyl Alcohol < 0.01 L (0.01-0.03) % SARS-CoV-2 (PCR) Negative SARS-CoV-2 (Negative) Influenza Type A (PCR) Negative PCR FLU A (Negative) Influenza Type B (PCR) Negative PCR FLU B (Negative) RSV (PCR) Negative PCR RSV (Negative) <Handy Julien MD - Last Filed: 07/17/23 09:48> Lab Results 07/16/23 07/16/23 07/16/23 Range/Units 13:35 15:14 15:35 WBC 8.59 (4.50-11.00) K/uL RBC 4.38 (4.00-5.20) m/uL Hgb 13.8 (12.0-16.0) gm/dL Hct 40.9 (33.0-51.0) % MCV 93 (80-100) fL MCH 32 (26-34) pg MCHC 34 (32-36) gm/dL RDW Coeff of Sanjay 12.1 (11.5-15.5) % Plt Count 298 (140-440) K/uL Neut % (Auto) 50.3 (42.0-72.0) % Lymph % (Auto) 31.1 (20-44) % [place] % (Auto) 9.5 (0.0-11.0) % Eos % (Auto) 8.3 H (0.0-7.0) % Baso % (Auto) 0.7 (0.0-3.0) % Neut # (Auto) 4.32 (1.7-7.0) K/uL Lymph # (Auto) 2.67 (0.90-2.90) K/uL [place] # (Auto) 0.80 (0.00-0.90) K/UL Eos # (Auto) 0.70 H (0.00-0.50) K/uL Baso # (Auto) 0.06 (0.00-0.30) K/uL Abs Immat Gran (auto) 0.01 (0.00-0.30) K/uL Imm/Tot Granulo (auto) 0.1 % D-Dimer Quant (PE/DVT) 0.34 (0.00-0.50) ug/ml Sodium 138 (135-149) mmol/L Potassium 3.6 (3.6-5.1) mmol/L Chloride 108 (96-114) mmol/L Carbon Dioxide 22 (20-32) mmol/L Anion Gap 8 (7-15) mEq/L BUN 12 (5-24) mg/dL Creatinine 0.9 (0.5-1.5) mg/dL Estimated Creat Clear 83.56 Estimated GFR 79 ml/min Glucose 92 (60-115) mg/dL Lactate 0.7 (0.5-1.9) mmol/L Calcium 9.6 (8.4-10.6) mg/dL Total Bilirubin 0.3 (0.1-1.5) mg/dL Direct Bilirubin 0.1 (0.0-0.5) mg/dL AST 22 (12-35) U/L ALT 22 (4-35) U/L Alkaline Phosphatase 81 (40-150) U/L C-Reactive Protein 1.3 H (0.5-1.0) mg/dL Total Protein 7.2 (6.0-8.3) g/dL Albumin 4.2 (3.3-5.0) g/dL Amylase 42 (18-89) U/L Lipase 61 (23-300) U/L Procalcitonin 0.04 (<0.50) ng/mL Urine Color Yellow (Yellow) Urine Appearance Clear (Clear) Urine pH 6.0 (5.0-8.5) Ur Specific [place] 1.010 (1.000-1.030) Urine Protein Negative (Negative) Urine Glucose (UA) Negative (Negative) Urine Ketones Negative (Negative) Urine Blood Negative (Negative) Urine Nitrite Negative (Negative) Urine Bilirubin Negative (Negative) Urine Urobilinogen 0.2 (0.2-1.0) Ur Leukocyte Esterase Negative (Negative) Urine RBC 0-2 (0-2) Urine WBC 0-2 (0-5) Ur Squamous Epith Cells None (None-Few) Urine Bacteria None (None) Stool Occult Blood Negative (Negative) Ethyl Alcohol < 0.01 L (0.01-0.03) % SARS-CoV-2 (PCR) Negative SARS-CoV-2 (Negative) Influenza Type A (PCR) Negative PCR FLU A (Negative) Influenza Type B (PCR) Negative PCR FLU B (Negative) RSV (PCR) Negative PCR RSV (Negative) <Shana Blackwell MD - Last Filed: 07/16/23 18:58> Imaging Data CT scan - abdomen: Attestation: I have reviewed the pertinent imaging results. <Shana Blackwell MD - Last Filed: 07/16/23 18:58> Radiologist's impression: Patient: MARIELOS SIDDIQI Facility:?[facility] Patient ID:?[id number] Site Patient ID:?[id number]. Site :?[id number] Study:?CT Abdomen/Pelvis 105CC ISOVUE 370-07/16/2023 4:17:13 PM Ordering Physician:Maria Ines Murrell Final Report: INDICATION: Abdominal pain. Cramping. TECHNIQUE: CT abdomen and pelvis acquired with 105 mL Isovue 370 IV contrast. COMPARISON: 05/30/2022 FINDINGS: Lower chest: Normal heart size. No pericardial effusion. Lung bases are clear. Liver: Normal size. Subcentimeter low-density lesion is too small to accurately characterize. This is stable and therefore likely benign. Spleen: Normal size. Pancreas: No acute inflammatory changes. Gallbladder and bile ducts: Cholecystectomy. No significant bile duct dilatation. Kidneys: Normal size and enhancement. No hydronephrosis. Adrenal glands: No mass. GI tract: No abnormally dilated bowel to suggest obstruction. Appendix is surgically absent. There is a small to moderate amount of stool primarily in the right side of the colon and transverse colon. Vascular structures: Normal caliber abdominal aorta. Lymph nodes: No pathologically enlarged lymph nodes. Miscellaneous: No free air. No free fluid. Pelvic Organs: No urinary bladder wall thickening or mass. Hysterectomy. No suspicious adnexal mass. Bones: No acute abnormality. IMPRESSION: 1. No CT evidence of an acute infectious or inflammatory process in the abdomen or pelvis. No evidence of bowel obstruction. 2. Small to moderate amount of stool within the colon. 3. Other findings as noted. Please note that all CT scans at this facility use dose modulation, iterative reconstruction, and/or weight-based dosing when appropriate to reduce radiation dose to as low as reasonably achievable. Dictated by Bc Woodall MD @ 07/16/2023 6:42:50 PM (Electronic Signature) <Shana Blackwell MD - Last Filed: 07/16/23 18:58> Discharge Plan Discharge Clinical Impression: Abdominal pain, Sinusitis, Constipation <Handy Julien MD - Last Filed: 07/17/23 09:48> Patient Disposition: Home, Self-Care <Handy Julien MD - Last Filed: 07/17/23 09:48> Condition: Stable <Handy Julien MD - Last Filed: 07/17/23 09:48> Instructions: Constipation (DC), Sinusitis (ED), High Fiber Diet (ED) <Handy Julien MD - Last Filed: 07/17/23 09:48> Additional Instructions: Can do the MiraLax prep for colonoscopy. Alternatively, can try MiraLax twice a day, add in senna anywhere from 1-4 pills daily until you start having stool production. Once you start having daily soft but formed stool, may need to back off some of these medicines as you could go over to diarrhea. Review the dietary handout for constipation. It is imperative that you get a follow-up to get scheduled for colonoscopy and may want to consider GI consultation. Antibiotic will be sent in for your complaint of sinusitis as you discussed with Dr. Julien. <Handy Julien MD - Last Filed: 07/17/23 09:48> Activity Level: Activity as Tolerated <Handy Julien MD - Last Filed: 07/17/23 09:48> Activity as Tolerated <Shana Blackwell MD - Last Filed: 07/16/23 18:58> Prescriptions: New cefdinir 300 mg capsule 300 mg PO BID Qty: 20 0RF No Action acetaminophen [Tylenol Extra Strength] 500 mg tablet 1,000 mg PO Q6H PRN levothyroxine 100 mcg tablet 112 mcg PO DAILY Patient Comments: topiramate 100 mg tablet 100 mg PO DAILY ibuprofen 600 mg tablet 600 mg PO Q8H PRN (Reason: pain) Qty: 21 0RF <Handy Julien MD - Last Filed: 07/17/23 09:48> Follow Up/Referrals: Sepideh Cool DO [Primary Care Provider] - <Handy Julien MD - Last Filed: 07/17/23 09:48> Stand Alone Forms: [facility] Info Instructions <Handy Julien MD - Last Filed: 07/17/23 09:48>
[2023-07-16 15:31] LABS: Fecal Occult Blood* Negative (Negative)
[2023-07-16] MEDS: 0.9 % SODIUM CHLORIDE 1000 ml 1,000 ML IV (15:41)
[2023-07-16] MEDS: ONDANSETRON 2 MG/ML inj 4 MG IVP (15:42)
[2023-07-16] MEDS: KETOROLAC 30 MG/ML inj IVP (15:42)
[2023-07-16 15:47] LABS: Lactate* 0.7 mmol/L (0.5-1.9)
[2023-07-16 15:50] LABS: Appearance Urine Clear (Clear); Bilirubin Urine Negative (Negative); Blood Urine Negative (Negative); Color Urine Yellow (Yellow); Glucose Urine Negative (Negative); Ketones Urine Negative (Negative); Leukocyte Esterase Urine Negative (Negative); Nitrite Urine Negative (Negative); Protein Urine Negative (Negative); Urobilinogen Urine 0.2 (0.2-1.0)
[2023-07-16 15:51] LABS: White Blood Count* 8.59 K/uL (4.50-11.00)
[2023-07-16 15:52] LABS: Basophils Absolute Auto 0.06 K/uL (0.00-0.30); Basophils Percent Auto 0.7 % (0.0-3.0); Eosinophils Percent Auto 8.3 % (0.0-7.0); Hematocrit 40.9 % (33.0-51.0); Hemoglobin* 13.8 gm/dL (12.0-16.0); Immature Granulocytes Abs Auto 0.01 K/uL (0.00-0.30); Immature Granulocytes Pct Auto 0.1 %; Lymphocytes Absolute Auto 2.67 K/uL (0.90-2.90); Lymphocytes Percent Auto 31.1 % (20-44); Mean Corpuscular HGB Conc 34 gm/dL (32-36); Mean Corpuscular Hemoglobin 32 pg (26-34); Mean Corpuscular Volume 93 fL (80-100); Monocytes Percent Auto 9.5 % (0.0-11.0); Neutrophils Absolute Auto 4.32 K/uL (1.7-7.0); Neutrophils Percent Auto 50.3 % (42.0-72.0); Platelet Count* 298 K/uL (140-440); RDW Coefficient of Variation % 12.1 % (11.5-15.5); Red Blood Count 4.38 m/uL (4.00-5.20)
[2023-07-16 15:55] LABS: Slide Review Reflex No
[2023-07-16 15:58] LABS: RBC Urine 0-2 (0-2); WBC Urine 0-2 (0-5)
[2023-07-16 16:12] LABS: Albumin* 4.2 g/dL (3.3-5.0); Chloride* 108 mmol/L (96-114); Sodium* 138 mmol/L (135-149)
[2023-07-16 16:13] LABS: Potassium* 3.6 mmol/L (3.6-5.1)
[2023-07-16 16:14] LABS: Amylase* 42 U/L (18-89)
[2023-07-16 16:15] LABS: Alkaline Phosphatase* 81 U/L (40-150); Anion Gap 8 mEq/L (7-15); Aspartate Amino Transferase* 22 U/L (12-35); Bilirubin Direct* 0.1 mg/dL (0.0-0.5); Bilirubin Total* 0.3 mg/dL (0.1-1.5); Blood Urea Nitrogen* 12 mg/dL (5-24); Carbon Dioxide* 22 mmol/L (20-32); Creatinine* 0.9 mg/dL (0.5-1.5); D Dimer Quantitative* 0.34 ug/ml (0.00-0.50); Est. Creatinine Clearance* 83.56; Estimated Glomerular Filt Rate 79 ml/min; Glucose* 92 mg/dL (60-115); Total Protein* 7.2 g/dL (6.0-8.3)
[2023-07-16 16:16] LABS: Alanine Aminotransferase* 22 U/L (4-35); Calcium* 9.6 mg/dL (8.4-10.6); Lipase* 61 U/L (23-300)
[2023-07-16 16:18] LABS: C Reactive Protein* 1.3 mg/dL (0.5-1.0); Ethanol* < 0.01 % (0.01-0.03)
[2023-07-16 16:28] LABS: PCR FLU A Negative PCR FLU A (Negative); PCR FLU B Negative PCR FLU B (Negative); PCR RSV Negative PCR RSV (Negative)
[2023-07-16 16:31] LABS: Procalcitonin* 0.04 ng/mL (<0.50)
[2023-07-16 16:36] LABS: SARS PCR* Negative SARS-CoV-2 (Negative)
--- NOTE | 2023-07-16 16:37 | ED.NURSE ---
fluids are finished and up to the bathroom via ambulatory. pain is 4/10 scale.
[2023-07-16 17:00] VITALS: BP 142/92; PULSE 80; RESP 16; O2SAT 96
[2023-07-16 19:00] VITALS: BP 134/93; PULSE 73; RESP 16; O2SAT 95
== END 2023-07-16 19:00 | disposition home or self-care (01) ==
PROVIDERS: Emergency Provider Family Medicine; PCP Family Medicine
DX: R10.9 Unspecified abdominal pain (principal); K59.00 Constipation, unspecified; J32.9 Chronic sinusitis, unspecified
CPT/HCPCS: 36415; 74177; 80048; 80076; 81001; 82077; 82150; 82270; 83605; 83690; 84145; 85025; 85379; 86140; 87631; 96374; 96375; 99284; 99285; J1885; J2405; J7030; Q9967

== ENCOUNTER 2023-07-30 11:15 | Outpatient (CLI) | payer BC, SELFPAY ==
--- NOTE | 2023-07-30 12:03 | W.ANESCHARGE ---
Anesthesia Charges Start Date/Time Anesthesia Start Date: 07/30/23 Anesthesia Start Time: 12:22 Stop Date/Time Anesthesia Stop Date: 07/30/23 Anesthesia Stop Time: 13:00
--- NOTE | 2023-07-30 13:00 | W.ANESCHARGE ---
Anesthesia Charges Start Date/Time Anesthesia Start Date: 07/30/23 Anesthesia Start Time: 12:22 Stop Date/Time Anesthesia Stop Date: 07/30/23 Anesthesia Stop Time: 13:00
== END 2023-07-30 11:16 | disposition home or self-care (01) ==
LOC: OP CLINIC 11:16
PROVIDERS: PCP Family Medicine; Visit Provider Surgery
DX: Z12.11 Encounter for screening for malignant neoplasm of colon (principal); K64.4 Residual hemorrhoidal skin tags
CPT/HCPCS: 00811; 45378; J2405; J2704

== ENCOUNTER 2024-08-26 07:58 | Outpatient (CLI) | payer BC, SELFPAY | END 2024-08-26 07:59 | disposition home or self-care (01) | PROVIDERS: Visit Provider Physician Assistant Medical | DX: R10.9 Unspecified abdominal pain (principal); N30.00 Acute cystitis without hematuria; E03.9 Hypothyroidism, unspecified | CPT/HCPCS: 80048; 80076; 87086 ==

== ENCOUNTER 2025-03-09 08:53 | Outpatient (CLI) | payer BC, SELFPAY | END 2025-03-09 08:54 | disposition home or self-care (01) | PROVIDERS: Visit Provider Physician Assistant | DX: R00.2 Palpitations (principal); E03.9 Hypothyroidism, unspecified | CPT/HCPCS: 80053; 84439; 84443 ==

== ENCOUNTER 2025-04-21 11:37 | Outpatient (CLI) | payer BC, SELFPAY | END 2025-04-21 11:38 | disposition home or self-care (01) | LOC: NFLDREF 04-23 18:11 | PROVIDERS: Visit Provider Physician Assistant | DX: E03.9 Hypothyroidism, unspecified (principal) | CPT/HCPCS: 84439; 84443 ==

== ENCOUNTER 2025-07-21 15:30 | Outpatient (CLI) | payer BC, SELFPAY | END 2025-07-21 15:31 | disposition home or self-care (01) | LOC: NFLDREF 07-24 14:20 | PROVIDERS: Visit Provider Physician Assistant | DX: E03.9 Hypothyroidism, unspecified (principal) | CPT/HCPCS: 84439; 84443 ==

== ENCOUNTER 2025-09-22 18:20 | Outpatient (CLI) | payer BC, SELFPAY ==
--- NOTE | 2025-09-22 19:00 | CRLHL7_ITS ---
For Patients: As a result of the Century Cures Act, medical imaging exams and procedure reports are released immediately into your electronic medical record. You may view this report before your referring provider. If you have questions, please contact your health care provider. INDICATION: BILATERAL SCREENING MAMMOGRAM, ASYMPTOMATIC 50 Y/O FEMALE COMPARISON: right diagnostic mammogram 02/10/14 TECHNIQUE: Digital mammogram in CC and MLO projections including computer-aided detection (CAD) and tomosynthesis. BREAST COMPOSITION: There are scattered areas of fibroglandular density. FINDINGS: No suspicious findings. ASSESSMENT: BI-RADS 1 Negative RECOMMENDATION: Annual screening mammogram. A lay language report of this examination will be provided to the patient. Dictated by: Bernadine Torres MD @ 09/25/2025 12:55:07 (Electronically Signed)
== END 2025-09-22 18:21 | disposition home or self-care (01) ==
LOC: MAMMO 18:20
PROVIDERS: Visit Provider Physician Assistant
DX: Z12.31 Encounter for screening mammogram for malignant neoplasm of breast (principal)
CPT/HCPCS: 77063; 77067

== ENCOUNTER 2025-10-21 10:37 | Outpatient (CLI) | payer BC, SELFPAY | END 2025-10-21 10:38 | disposition home or self-care (01) | LOC: NFLDREF 10-26 10:14 | PROVIDERS: Visit Provider Physician Assistant | DX: E03.9 Hypothyroidism, unspecified (principal) | CPT/HCPCS: 84439; 84443 ==